=== PATIENT | male | born 1995 | race African-American/Black ===

== ENCOUNTER 2021-01-09 14:25 | Emergency (ER) | payer OTHER ==
[~2021-01-09] VITALS: Ht 185.4 cm; Wt 76.2 kg
[~2021-01-09 14:25] MED LIST: AMOXICILLIN875 MG PO; NOHOMEMEDICATIONS; PREDNISONE 10 M10 M1 PO; PROMETHAZINE/C118 ML PO; PROTONIX 20 MG20 M1 PO
[2021-01-09] MEDS ORDERED: VITAMIN D-40010 MCG PO (14:39)
[2021-01-09] MEDS ORDERED: BIKTARVY 50-201 EACH PO (14:39)
[2021-01-09] MEDS ORDERED: ROBAXIN 750 MG750 MG PO (15:49)
[2021-01-09 15:55] VITALS: BP 132/91
== END 2021-01-09 15:56 | disposition home or self-care (01) ==
LOC: M.ERS 14:25
DX: S16.1XXA Strain of muscle, fascia and tendon at neck level, initial encounter (principal); S29.012A Strain of muscle and tendon of back wall of thorax, initial encounter; V43.52XA Car driver injured in collision with other type car in traffic accident, initial encounter; Y93.89 Activity, other specified; Y92.89 Other specified places as the place of occurrence of the external cause; Y99.8 Other external cause status